=== PATIENT | male | born 1980 | race Caucasian/White ===

== ENCOUNTER 2018-07-01 12:09 | Emergency (ER) | payer OTHER ==
[2018-07-01] MEDS ORDERED: ONDANSETRON 4 MG/2 ML VIAL IVP ONE (13:26)
[2018-07-01] MEDS ORDERED: NS 1,000 ML IV ONE (13:45)
[2018-07-01 14:21] LABS: PLATELET COUNT 173 10^3/uL (150-400)
--- NOTE | 2018-07-01 14:53 | EDPHY ---
H & P Stated Complaint: Dizzy, WHARTON, "Feels Strange" Nausea Source: Patient - Personal History Current Tetanus Diphtheria and Acellular Pertussis (TDAP): Yes - Medical/Surgical History Hx Asthma: No Hx Chronic Respiratory Disease: No Hx Diabetes: No Hx Cardiac Disease: No Hx Renal Disease: No Hx Cirrhosis: No Hx Alcoholism: No Hx HIV/AIDS: No Hx Splenectomy or Spleen Trauma: No Other PMH: Anxiety, Depression - Family History Significant Family History: Other (Patient's father of an VT at 46) - Social History Smoking Status: Former smoker Alcohol Use: None Drug Use: None Time Seen by Provider: 07/01/18 13:24 HPI/ROS: CHIEF COMPLAINT: Headache and dizziness HISTORY OF PRESENT ILLNESS: 37-year-old male with past medical history of psoriasis presents to the emergency department with complaints of a frontal headache and mild dizziness that occurred at work this morning. Patient reports headache was gradual in onset, associated with nasal congestion, and a feeling of lightheadedness. No reported closed head injury, cervical spine injury, chiropractic adjustment, deep tissue massage or neck injury. Patient reports intermittent history of headaches in the past but this headache felt different. He has struggled with allergy since moving to our area a year ago. He tried Claritin and Aleve with minimal improvement in his symptoms and a co- worker brought him to the ER. He is declining additional analgesics here. He felt mildly nauseous but did not vomit. He has been well hydrated and eating regular meals. No associated vision change, photosensitivity. No heavy lifting or strain. He was seen prior to his arrival here at Urgent Care. REVIEW OF SYSTEMS: All other systems negative Constitutional: No fever, no chills, appetite change. Eyes: No discharge, vision change ENT: No sore throat, congestion, ear pain. Cardiovascular: No chest pain, no palpitations. Respiratory: No cough, no shortness of breath. Gastrointestinal: No abdominal pain, no vomiting, diarrhea. Genitourinary: No hematuria, dysuria, flank pain, pelvic pain Musculoskeletal: No back pain, joint swelling, joint pain, myalgias. Skin: No rashes, color change. Neurological: No headache, dizziness, weakness. PHYSICAL EXAM: General Appearance: Alert, oriented, appropriate, cooperative, NAD, well hydrated, non-toxic appearing, VSS, no hypoxia, declining additional analgesics at this time. HEENT TMs are clear bilaterally no perforation or FB, no injection, no evidence of serous or mucopurulent otitis. Oropharynx clear is no erythema or exudates, no tonsillar hypertrophy or asymmetry. Dentition without abnormality. Eyes: PERRLA, no subjective vision change, diplopia, nystagmus, swelling, discharge, pain or photosensitivity. Conjunctiva pink, no pallor or injection Neck: Supple, nontender, no lymphadenopathy, no midline pain, FROM, no meningismus, mild tenderness to paraspinal muscles bilaterally. Respiratory: There are no retractions, lungs are clear to auscultation. Cardiac: Regular rate and rhythm, no murmurs or gallops. Gastrointestinal: Abdomen is soft, nontender, bowel sounds normal, no masses/ hernia, no rigidity, guarding or focal peritoneal findings. Neurological: Alert and oriented x 3, CN 2-12 grossly intact, normal gait no ataxia, DTR's intact, normal sensation, NIH score of 0 no limb ataxia Skin: Warm, dry, no rashes, no nodules on palpation. Musculoskeletal: extremities are symmetrical, full range of motion, no tenderness, deformity, swelling, or erythema. (Fady Onofre) The patient was evaluated and managed by the physician office administrative assistant. I have reviewed this chart and I agree with the findings and plan of care as documented , as indicated by my signature. I am the secondary supervising physician. ( Devi Gates) Constitutional: Initial Vital Signs Temperature (C) 36.4 C 07/01/18 12:12 Heart Rate 47 L 07/01/18 12:12 Respiratory Rate 18 07/01/18 12:12 Blood Pressure 145/96 H 07/01/18 12:12 O2 Sat (%) 96 07/01/18 12:12 O2 Delivery Mode Room Air Allergies/Adverse Reactions: Penicillins Allergy (Verified 07/01/18 12:11) Home Medications: Medication Instructions Recorded Joe 07/01/18 Medical Decision Making ED Course/Re-evaluation: Patient was seen independently by previously established practice protocols, secondary supervising physician at time of evaluation was Dr. Devi Gates [id number]: Patient reassessed. States his headache is now nearly gone. He is feeling much better. He is most bothered by his IV and is requesting this be taken out. Declining additional oral analgesics for headache. Remains without focal neurological deficit. Awaiting metabolic panel, CBC unremarkable aside from mild anemia which was relayed to the patient. 1520: The patient reassessed, feeling much better, ate, drank juice and ambulated without feeling dizzy or off balance. No ataxia. Will plan to monitor symptoms closely at home. No electrolyte imbalance or renal insufficiency. This is a 37-year-old male with a reported past medical history of psoriasis who presents to the emergency department after he became dizzy, nauseous and developed a bifrontal, atraumatic headache at work. Patient is alert, oriented , no focal neurological deficits on exam, no limb ataxia. Labs were reassuring , mild anemia, no leukocytosis, renal insufficiency, electrolyte imbalance. Patient declined IV analgesics and antiemetics. He received 1 L IV fluid. After multiple reassessments, patient's headache had completely resolved, he was able to tolerate juice and food without difficulty, ambulated without ataxia or dizziness. No clinical suspicion at this time for acute CVA, TIA, vertebral artery dissection, subarachnoid hemorrhage, or meningitis. This may represent tension headache versus atypical migraine, versus chronic sinusitis. Home care discussed, PCP follow-up recommended, warning signs to return to ER sooner and person and discharge papers. (Fady Onofre) Differential Diagnosis: Differential diagnosis includes but not limited to subarachnoid hemorrhage, CVA , TIA, infectious etiology, meningitis, migraine headache, tension headache sinusitis. (Fady Onofre) - Data Points Laboratory Results: Laboratory Results 07/01/18 14:05 07/01/18 14:05 Medications Given: Discontinued Medications Sodium Chloride (Ns) 1,000 mls @ 0 mls/hr IV EDNOW ONE; Wide Open PRN Reason: Protocol Stop: 07/01/18 13:46 Last Admin: 07/01/18 14:04 Dose: 1,000 mls Departure - Departure Disposition: Home, Routine, Self-Care Clinical Impression: Frontal headache Condition: Good Instructions: Acute Headache (ED) Additional Instructions: You had a comprehensive evaluation in the emergency department with no evidence of acute neurological deficits, significant lab abnormalities, or indication for an emergent CT or MRI scan. He declined additional pain medication in the ER. Please monitor symptoms closely at home. Follow up with a primary care doctor if you do not have 1, we provided one or you. Stay well hydrated, eat regular meals, consider follow-up with an mine analyst or ENT for chronic nasal congestion. Please return to the emergency department immediately for severe worsening headache, vertigo, severe dizziness, inability to walk, slurred speech , weakness to her arms or legs, unexplained vomiting, fevers greater than 100.4 , neck stiffness, vision loss or vision change, or any other concerns. Referrals: NONE *PRIMARY CARE P,. [Primary Care Provider] - As per Instructions Alice Aleman MD [Medical Doctor] - As per Instructions
[2018-07-01 15:31] VITALS: BP 122/74
== END 2018-07-01 15:31 | disposition home or self-care (01) ==
DX: R51 Headache (principal); R42 Dizziness and giddiness; E86.9 Volume depletion, unspecified; Z82.49 Family history of ischemic heart disease and other diseases of the circulatory system